=== PATIENT | female | born 1980 | race Caucasian/White ===

== ENCOUNTER 2023-09-17 13:05 | Emergency (ER) | payer SELFPAY ==
[~2023-09-17] VITALS: Ht 167.6 cm; Wt 84.1 kg
[2023-09-17 13:39] VITALS: BP 165/63; PULSE 76; RESP 18; TEMP 98.5; O2SAT 98
== END 2023-09-17 15:46 | disposition home or self-care (01) ==
LOC: ER 13:06
DX: S90.31XA Contusion of right foot, initial encounter (principal); X58.XXXA Exposure to other specified factors, initial encounter; Y93.89 Activity, other specified; Y92.89 Other specified places as the place of occurrence of the external cause; Y99.8 Other external cause status
CPT/HCPCS: 73610; 73630; 99284; L4360